=== PATIENT | female | born 1990 | race Asian ===

== ENCOUNTER 2019-01-29 11:38 | Observation (INO) | payer OTHER ==
[~2019-01-29] VITALS: Ht 149.9 cm; Wt 52.6 kg
[2019-01-29] MEDS ORDERED: PREN1TAB80 PO (12:32)
[2019-01-29 12:33] VITALS: BP 104/59
[2019-01-29] MEDS ORDERED: RINGERS SOLUTION,LACTATED 1,000 ML IV ONE (12:45)
[2019-01-29] MEDS ORDERED: CefTRIAXone 1 GM/DEXTROSE 50 ML IV ONE (12:45)
== END 2019-01-29 14:50 | disposition home or self-care (01) ==
LOC: 4S 12:05
PROVIDERS: ADMIT Obstetrics & Gynecology; ATTEND Obstetrics & Gynecology
DX: O23.43 Unspecified infection of urinary tract in pregnancy, third trimester (principal); Z3A.28 28 weeks gestation of pregnancy
CPT/HCPCS: 81002; 96365; G0378; J0696; J7120

== ENCOUNTER 2019-04-13 08:55 | Inpatient (IN) | payer OTHER ==
[~2019-04-13] VITALS: Ht 147.3 cm; Wt 59.4 kg
[~2019-04-13 08:55] MED LIST: PREN1TAB80 PO
[2019-04-13] MEDS ORDERED: RINGERS SOLUTION,LACTATED 1,000 ML IV PRN (09:34)
[2019-04-13] MEDS ORDERED: OXYTOCIN 30 UNITS/LACT RINGERS 500 ML IV ONE (09:34)
[2019-04-13] MEDS ORDERED: OXYTOCIN 30 UNITS/LACT RINGERS 500 ML IV PRN (09:34)
[2019-04-13] MEDS ORDERED: PREN-217 PO (09:34)
[2019-04-13] MEDS ORDERED: OXYGEN THERAPY IH SCH (09:45)
[2019-04-13] MEDS ORDERED: CITRIC ACID/SODIUM CITRATE 30 ML SOLUTION UDCUP PO PRN (09:45)
[2019-04-13] MEDS ORDERED: METHYLERGONOVINE MALEATE 0.2 MG/ML VIAL IM PRN (09:45)
[2019-04-13] MEDS ORDERED: FentaNYL CITRATE-PF 100 MCG/2 ML VIAL IVP PRN (09:45)
[2019-04-13] MEDS ORDERED: METOCLOPRAMIDE HCL 5 MG/ML 2 ML VIAL IVP PRN (09:45)
[2019-04-13] MEDS ORDERED: AMPICILLIN SODIUM 2 GM/NS 100 ML IV ONE (10:00)
[2019-04-13 10:23] VITALS: BP 99/60
[2019-04-13] MEDS: RINGERS SOLUTION,LACTATED 1,000 ML IV SCH ×3 (10:26→12:47)
[2019-04-13 10:36] LABS: BASOPHILS % (AUTO) 0.1 % (0.0-2.0); EOSINOPHILS % (AUTO) 0.2 % (1.0-6.0); HEMATOCRIT 44.9 % (36-46); HEMOGLOBIN 14.7 g/dL (12.0-16.0); LYMPHOCYTES # (AUTO) 1.3 K/uL (1.0-4.8); LYMPHOCYTES % (AUTO) 14.2 % (22.0-44.0); MEAN CORPUSCULAR HEMOGLOBIN 31.8 pg (26.0-34.0); MEAN CORPUSCULAR HGB CONC 32.8 G/dL (31.0-37.0); MEAN CORPUSCULAR VOLUME 97 fL (80-100); MONOCYTES # (AUTO) 0.7 K/uL (0.1-1.0); MONOCYTES % (AUTO) 7.1 % (2.0-9.0); NEUTROPHILS # (AUTO) 7.2 K/uL (1.8-7.7); NEUTROPHILS % (AUTO) 78.4 % (40.0-70.0); PLATELET COUNT (AUTO) 214 K/uL (150-450); RED BLOOD CELL COUNT(AUTO) 4.64 MIL/uL (4.00-5.20); RED CELL DISTRIBUTION WIDTH 14.2 % (11.5-14.5)
[2019-04-13] MEDS ORDERED: LIDOCAINE/PF 2% 5 ML VIAL ONE (12:03)
[2019-04-13] MEDS ORDERED: ROPIVACAINE HCL/PF 0.2% 100 ML ED ONE (12:03)
[2019-04-13] MEDS ORDERED: ROPIVACAINE HCL/PF 0.2% 100 ML ED PRN (12:30)
[2019-04-13] MEDS ORDERED: ONDANSETRON HCL 4 MG/2 ML VIAL IVP PRN (12:30)
[2019-04-13] MEDS ORDERED: NALBUPHINE HCL 10 MG/ML VIAL IVP PRN (12:30)
[2019-04-13] MEDS ORDERED: DiphenhydrAMINE HCL 50 MG/ML VIAL IVP PRN (12:30)
[2019-04-13] MEDS ORDERED: AMPICILLIN SODIUM 1 GM/NS 50 ML IV SCH (14:00)
[2019-04-13] MEDS ORDERED: LIDOCAINE/PF 1% 30 ML VIAL ONE (17:43)
[2019-04-13] MEDS ORDERED: MAGNESIUM HYDROXIDE SUSPENSION 30 ML UDCUP PO PRN (18:00)
[2019-04-13] MEDS ORDERED: IBUPROFEN 600 MG TABLET PO PRN (18:00)
[2019-04-13] MEDS ORDERED: OxyCODONE HCL/ACETAMINOPHEN 5-325 MG TABLET PO PRN ×2 (18:00)
[2019-04-13] MEDS ORDERED: GLYCERIN/WITCH HAZEL LEAF 40 PADS JAR TP PRN (18:00)
[2019-04-13] MEDS ORDERED: LANOLIN 7 GM OINTMENT TP PRN (18:00)
[2019-04-13] MEDS ORDERED: BENZOCAINE 20%/MENTHOL 56 GM SPRAY CANISTER TP PRN (18:00)
[2019-04-14 06:09] LABS: BASOPHILS % (AUTO) 0.1 % (0.0-2.0); EOSINOPHILS % (AUTO) 0.1 % (1.0-6.0); HEMATOCRIT 41.7 % (36-46); HEMOGLOBIN 13.5 g/dL (12.0-16.0); LYMPHOCYTES # (AUTO) 2.5 K/uL (1.0-4.8); LYMPHOCYTES % (AUTO) 14.3 % (22.0-44.0); MEAN CORPUSCULAR HEMOGLOBIN 31.7 pg (26.0-34.0); MEAN CORPUSCULAR HGB CONC 32.4 G/dL (31.0-37.0); MEAN CORPUSCULAR VOLUME 98 fL (80-100); MONOCYTES # (AUTO) 1.2 K/uL (0.1-1.0); MONOCYTES % (AUTO) 6.8 % (2.0-9.0); NEUTROPHILS # (AUTO) 13.8 K/uL (1.8-7.7); NEUTROPHILS % (AUTO) 78.7 % (40.0-70.0); PLATELET COUNT (AUTO)-OB 241 K/uL (150-450); RED BLOOD CELL COUNT(AUTO) 4.26 MIL/uL (4.00-5.20); RED CELL DISTRIBUTION WIDTH 14.3 % (11.5-14.5)
[2019-04-14] MEDS ORDERED: IBUP-2070 PO (17:23)
== END 2019-04-14 18:15 | disposition home or self-care (01) | DRG 807 ==
LOC: 4S 08:55 → OBSVTOIN 08:55
PROVIDERS: ADMIT Obstetrics & Gynecology; ATTEND Obstetrics & Gynecology
PROC: 0W8NXZZ Division of Female Perineum, External Approach (ICD-10-PCS; principal; 2019-04-13)
PROC: 10D07Z6 Extraction of Products of Conception, Vacuum, Via Natural or Artificial Opening (ICD-10-PCS; 2019-04-13)
PROC: 0HQ9XZZ Repair Perineum Skin, External Approach (ICD-10-PCS; 2019-04-13)
PROC: 3E0R3BZ Introduction of Anesthetic Agent into Spinal Canal, Percutaneous Approach (ICD-10-PCS; 2019-04-13)
PROC: 00HU33Z Insertion of Infusion Device into Spinal Canal, Percutaneous Approach (ICD-10-PCS; 2019-04-13)
DX: O76 Abnormality in fetal heart rate and rhythm complicating labor and delivery (principal); Z37.0 Single live birth; O99.89 Other specified diseases and conditions complicating pregnancy, childbirth and the puerperium; O70.0 First degree perineal laceration during delivery; R00.1 Bradycardia, unspecified; O69.81X0 Labor and delivery complicated by cord around neck, without compression, not applicable or unspecified; Z3A.38 38 weeks gestation of pregnancy
CPT/HCPCS: 76805; 86850; 86900; 86901; J0290; J2795; J3490; J7120